=== PATIENT | female | born 1995 | race Caucasian/White ===

== ENCOUNTER 2024-05-09 10:50 | Emergency (ER) | payer OTHER, SELFPAY ==
[2024-05-09] VITALS (9 sets, daily range): BP systolic 102–153; BP diastolic 46–133; PULSE 58–120; RESP 16–22; O2SAT 99–100; BMI 20.4
--- NOTE | 2024-05-09 11:06 | ED_ITS ---
HPI - Overdose General Chief Complaint: Overdose Stated Complaint: OD,NARCAN GIVEN,HPD ONBOARD,RESTRAINED PER EMS Time Seen by Provider: 05/09/24 11:03 Source: patient Mode of arrival: ambulatory Limitations: no limitations History of Present Illness ED Provider: Dr. Kartik Campbell HPI Narrative: 28-year-old female brought to the emergency department for evaluation of altered mental status. Patient was acutely agitated at the time of my evaluation and required physical and chemical restraints and information was not obtainable from the patient. Report was obtained from EMS and the ED nurse. Patient was found down and altered. The patient was given intranasal Narcan by the 1st responders and also received intranasal Narcan from EMS. Was reported that the patient had both empty and full bags of heroin and cocaine scattered around the floor. She also had a bottle of gabapentin. The patient did wake up after receiving Narcan but was extremely combative and agitated. Related Data Allergies Allergy/AdvReac Type Severity Reaction Status Date / Time No Known Allergies Allergy Unverified 05/09/24 11:24 [No Known Allergies*] [facility] Social History Social History Unable to assess alcohol history related to: Unable to respond Use of substances other than those prescribed or required for medical reasons: Yes Substance Use Type: Crack/Cocaine and Heroin Advance Directives: No Advance Directives Information Provided: No Do you have a plan to hurt others: No Plan Physical Exam Vital Signs: Vital Signs: Last Vital Signs Pulse 63 05/09/24 16:00 Resp 16 05/09/24 16:00 BP 109/70 05/09/24 16:00 Pulse Ox 100 05/09/24 16:00 O2 Del Method Room Air 05/09/24 16:00 O2 Flow Rate 2 05/09/24 14:00 BMI result Body Mass Index 20.4 Vital signs were normal Exam: General: Patient is awake, agitated, screaming, required physical restraint by staff and then wrist and leg restraints. She also required chemical restraints. Head: Normocephalic, atraumatic EENT: PERRL, Lids normal, sclera normal, conjunctiva normal, nose normal , ears normal, throat without erythema or exudates Lung: breath sounds symmetric, no wheezing, rales or rhonchi Heart: regular rate and rhythm, normal S1, S2 no murmurs or rubs Extremities: no deformities, moves all extremities symmetrically Skin: Patient has multiple areas of bruising on her arms and legs. She has multiple track legs on her arms legs feet and neck.What is at of once a give her that mom can get him take a home your Jody mom, in meds okay Psych: Extreme agitation, unable to cooperate with commands Medications Administered Discontinued Medications Generic Name Dose Route Start Last Admin Trade Name Snow PRN Reason Stop Dose Admin Diphenhydramine HCl 50 mg 05/09/24 11:06 05/09/24 11:10 Diphenhydramine Hcl 50 Mg/Ml Vial IM 05/09/24 11:07 50 mg ONCE ONE Administration Haloperidol Lactate 10 mg 05/09/24 11:06 05/09/24 11:10 Haloperidol Lactate 5 Mg/Ml Vial IM 05/09/24 11:07 10 mg ONCE ONE Administration Lorazepam 2 mg 05/09/24 11:06 05/09/24 11:10 Lorazepam 2 Mg/Ml Vial IM 05/09/24 11:07 2 mg ONCE ONE Administration Ondansetron HCl 4 mg 05/09/24 11:37 05/09/24 12:20 Ondansetron Odt 4 Mg Tab.Rapdis TRANSLINGU 05/09/24 11:38 4 mg ONCE ONE Administration Medical Decision Making Medical Decision Making MDM Narrative: 28-year-old female who was found unresponsive and did wake up after receiving 2 doses of intranasal Narcan. Patient did not return to her baseline mental status and was extremely agitated during transport on presentation requiring physical and chemical restraints. Physical examination reveals track walker on her arms, legs and neck and bruising on her body. Patient was found with empty bags of heroin, empty bags of cocaine as well as unused bags of both of these substances. Differential diagnosis: ?Includes but is not limited to opiate use disorder, cocaine use disorder, polysubstance use Course: 17:48 Start physician observation The patient presented with extreme agitation after being revived with intranasal Narcan. Given her agitation I suspect that the patient has polysubstance is on board most likely PCP. The patient initially was physically restrained and chemically restrained with Haldol 10 mg IM, Benadryl 50 mg IM and Ativan 2 mg IM. The patient eventually was taken out of physical restraints in his been resting comfortably. Patient was still not awake and will need further observation here in the emergency department. At the end of my shift, the patient's care was turned over to my colleague, Dr. Poonam Horn. Patient will remain in the emergency department emergency department on a one-to-one observation until disposition can be determined or until patient's symptoms improve over time. Admission/Observation Consideration of admission/observation: Escalation of care including admission/observation considered Chronic Conditions Patient?s care impacted by: Other (Polysubstance use disorder) Critical Care Time Critical Care Time Critical Care Time: Yes Total Critical Care Time: 40 Attestation: Critical Care: The patient was critically ill with a high probability of imminent or life threatening deterioration. I spent greater than 30 minutes of discontinuous time evaluating the patient,delivering critical care at the bedside, discussing and evaluating pertinent data with consultants. Critical care time does not include time spent performing separately billable procedures or teaching. Total time spent performing critical care was 40 minutes. Discharge Plan Discharge Clinical Impression: Agitation due to dementia Opiate or related narcotic overdose Qualifiers: Encounter type: initial encounter Injury intent: accidental or unintentional Qualified Code(s): T40.601A - Poisoning by unspecified narcotics, accidental (unintentional), initial encounter Patient Disposition: Still a Patient Print Language: Tajik
[2024-05-09] MEDS: LORazepam 2 MG/ML VIAL IM (11:10)
[2024-05-09] MEDS: diphenhydrAMINE HCL 50 MG/ML VIAL IM (11:10)
[2024-05-09] MEDS: Haloperidol Lactate 5 MG/ML VIAL 10 MG IM (11:10)
--- NOTE | 2024-05-09 12:18 | MHC.EDTECH ---
attempted to obtain labwork. patient still unable to stay still enough. provider made aware. attempt was unsuccessful.
--- NOTE | 2024-05-09 12:19 | MHC.EDTECH ---
Patient not still enough for an EKG
[2024-05-09] MEDS: Ondansetron ODT 4 MG TAB.RAPDIS TRANSLINGU (12:20)
--- NOTE | 2024-05-09 12:44 | PC.NURSE ---
Patient not able to sit still for ekg/lab draws, provider aware, okay'd to hold off for now. 1:1 sitter at bedside, patient continues to be in restraints.
--- NOTE | 2024-05-09 14:16 | PC.NURSE ---
Patient continues to rest quietly on the stretcher, provider aware, okay with continuing to hold off w/ sticking patient d/t difficult stick & difficult patient, 1:1 sitter at bedside, VSS.
--- OUTSIDE RECORDS SUMMARY | 2024-05-09 17:32 | XMS_ITS | Continuity of Care Document ---
Author Organization [facility] Address Unknown Care Team Providers Care Infection Preventionist Name Role Phone Not on Staff, PCP Primary Care Physician Unavail able [facility]counter [facility] Date(s): [facility]17[facility]21 [facility] Allergies, Adverse Reactions, Alerts No Known Medication Allergies Immunizations Given and Recorded Vaccine Date Status Refusal Reason tetanus/diphtheria/pertussis, acel(Tdap) 09/24/19 Given Medications Suboxone 2 mg-0.5 mg sublingual film Sublingual, Daily, 0 Refills, Maintenance, 09/24/19 7:35:00 EST Start Date: 09/24/19 Status: Ordered Problem List Condition Effective Dates Status Health Status Inform ant Anxiety and depression(Confirmed) Active History of gonorrhea(Confirmed) Active Late latent syphilis(Confirmed) Active Narcotic abuse(Confirmed) Active Hepatitis C(Confirmed) Active Social History Social History Type Response Tobacco Other: 0.5ppd x sine 17 yrs of age.. Sex
--- OUTSIDE RECORDS SUMMARY | 2024-05-09 17:32 | XMS_ITS | Continuity of Care Document ---
[facility] Address [address] [place] [address]- Care Team Providers Care Oxygen Tank Filler Name Role Phone Sean GRIFFIN, Emiliano Jaramillo Primary Care Physician Encounter [facility] Date(s): 10/28/19 - 11/07/19 [facility] [place] [address] [place] [address]- [facility] Attending Physician: AdmLayton vang Admitting Physician: Admtr, Layton Referring Physician: Admtr, Ar8 Allergies, Adverse Reactions, Alerts No Known Medication Allergies Immunizations Given and Recorded Vaccine Date Status Refusal Reason tetanus/diphtheria/pertussis, acel(Tdap) 09/24/19 Given Medications melatonin 1 mg oral tablet 1 tablet = 1 mg, By Mouth, Daily at bedtime, PRN for insomnia, for 30 days, # 30 tablet, 0 Refills,Acute 11/27/19 14:58:00 EDT, 10/28/19 14:58:00 EST, Tablet, [id number], 153, cm, 10/28/19 14:32:00 EST, Height Start Date: 10/28/19 Stop Date: 11/27/19 Status: Ordered Suboxone 2 mg-0.5 mg sublingual film Sublingual, Daily, 0 Refills, Maintenance, 09/24/19 7:35:00 EST Start Date: 09/24/19 Status: Ordered Problem List Condition Effective Dates Status Health Status Inform ant Anxiety and depression(Confirmed) Active History of gonorrhea(Confirmed) Active Late latent syphilis(Confirmed) Active Narcotic abuse(Confirmed) Active Hepatitis C(Confirmed) Active Social History Social History Type Response Tobacco Use: vaping. Sex
--- OUTSIDE RECORDS SUMMARY | 2024-05-09 17:32 | XMS_ITS | Continuity of Care Document ---
Author Organization [facility] Address [address] [place] [address]- Care Team Providers Care Knit Goods Press Hand Name Role Phone Angie GRIFFIN, Diane Bobby Primary Care Physician Encounter [facility] Date(s): 02/05/22 - [facility] [address] [place] [address]- Attending Physician: Layton Golden Admitting Physician: Layton Golden Referring Physician: trLayton Allergies, Adverse Reactions, Alerts No Known Medication Allergies Immunizations Given and Recorded Vaccine Date Status Refusal Reason tetanus/diphtheria/pertussis, acel(Tdap) 09/24/19 Given Medications Nexplanon 68 mg subcutaneous implant 1 each = 68 mg, Subcutaneous Infusion, Once, # 1 each, 0 Refills, Soft Stop, 01/04/22 9:13:00 EDT, [facility], Partial fill upon patient request if the prescription is for a scheduleII opioid drug. Start Date: 01/04/22 Status: Ordered Suboxone 2 mg-0.5 mg sublingual [...]
--- OUTSIDE RECORDS SUMMARY | 2024-05-09 17:32 | XMS_ITS | Continuity of Care Document ---
Author Organization [facility] Address [address] [place] [address]- Care Team Providers Care Paper Latcher Name Role Phone Sean GRIFFIN, Emiliano Jaramillo Primary Care Physician Encounter [facility] Date(s): 10/14/19 - 10/14/[address] [address]- [facility] Attending Physician: Alvarez Dixon DO Allergies, Adverse Reactions, Alerts No Known Medication Allergies Immunizations Given and Recorded Vaccine Date Status Refusal Reason tetanus/diphtheria/pertussis, acel(Tdap) 09/24/19 Given Medications Suboxone 2 mg-0.5 mg sublingual film Sublingual, Daily, 0 Refills, Maintenance, 09/24/19 7:35:00 EST Start Date: 09/24/19 Status: Ordered Problem List Condition Effective Dates Status Health Status Inform ant Anxiety and depression(Confirmed) Active History of gonorrhea(Confirmed) Active Narcotic abuse(Confirmed) Active Hepatitis C(Confirmed) Active Social History Social History Type Response Tobacco Use: Vaping. Sex
--- OUTSIDE RECORDS SUMMARY | 2024-05-09 17:32 | XMS_ITS | Continuity of Care Document ---
Author Organization [facility] Address [address] [place] [address]- Care Team Providers Care Dental Scheduler Name Role Phone New Michael MD Primary Care Physician [phone] Encounter [facility] R [id number] Date(s): 07/19/20 - 08/18/20 [facility] [address] [place], [place] [email or web address] Attending Physician: Layton Golden Admitting Physician: Layton Golden Referring Physician: AdmtrLayton Allergies, Adverse Reactions, Alerts No Known Medication [...]
--- OUTSIDE RECORDS SUMMARY | 2024-05-09 17:32 | XMS_ITS | Continuity of Care Document ---
Author Organization [facility] Address [address] [place] [address]- Care Team Providers Care Community Service Organization Director Name Role Phone Not on Staff, PCP Primary Care Physician Unavail able Encounter [facility] Date(s): 12/15/21 - 01/14/22 [facility] [address] [place] [address]- [place] Allergies, Adverse Reactions, Alerts No Known Medication Allergies Immunizations Given and Recorded Vaccine Date Status Refusal Reason tetanus/diphtheria/pertussis, acel(Tdap) 09/24/19 Given Medications Nexplanon 68 mg subcutaneous implant 1 each = 68 mg, Subcutaneous Infusion, Once, # 1 each, 0 Refills, Soft Stop, 01/04/22 9:13:00 EDT, [facility], Partial fill upon patient request [...]
--- OUTSIDE RECORDS SUMMARY | 2024-05-09 17:32 | XMS_ITS | Continuity of Care Document ---
Author Organization [facility] Address [address] [place] [address]- Care Team Providers Care Parachute Panel Joiner Name Role Phone Diane Adams MD Primary Care Physician [phone] Encounter [facility] Date(s): 12/15/21 - 03/07/22 [facility] [employer] [facility] [place] [id number]- Attending Physician: Diane Adams MD Allergies, Adverse Reactions, Alerts No Known Medication Allergies Immunizations Given and Recorded Vaccine Date Status Refusal Reason tetanus/diphtheria/pertussis, acel(Tdap) 09/24/19 Given Medications Nexplanon 68 mg subcutaneous implant 1 each = 68 mg, Subcutaneous Infusion, Once, # 1 each, 0 Refills, Soft Stop, 01/04/22 9:13:00 EDT, [facility], Partial fill upon patient request [...] Active Narcotic abuse(Confirmed) Active Hepatitis C(Confirmed) Active Vital Signs Most recent to oldest [Reference Range]: 1 Height 153 cm (02/05/22 12:28 PM) Social History Social History Type Response Tobacco Other: 0.5ppd x sine 17 yrs of age.. Sex
--- OUTSIDE RECORDS SUMMARY | 2024-05-09 17:33 | XMS_ITS | Continuity of Care Document ---
Author Organization [facility] [place] Address [address] [place] [address]- Care Team Providers Care Agriculture Mechanic Name Role Phone Emiliano Estrada MD Primary Care Physician Encounter [facility] Date(s): 10/28/19 - 11/04/19 [facility] [place] [address] [place] [address]- [facility] Attending Physician: Emiliano Estrada MD Allergies, Adverse Reactions, Alerts No Known [...] oldest [Reference Range]: 1 Height 153 cm (10/28/19 2:32 PM) Weight 62.0 kg (10/28/19 2:32 PM) Oxygen Saturation [94-100 %] 98 % (10/28/19 2:32 PM) Pulse Rate [55-90 bpm] 74 bpm (10/28/19 2:32 PM) Body Mass Index [18.5-24.99] 26.49 *H* (10/28/19 2:32 PM) Blood Pressure [90-138/55-84 mm Hg] 88/7 0mm Hg *L* (10/28/19 2:32 PM) Respiratory Rate [16-30 br/min] 18 br/mi n (10/28/19 2:32 PM) Temperature [96.8-100.4 DegF] 98.2 DegF (10/28/19 2:32 PM) Liters per Minute 0 L/min (10/28/19 2:32 PM) Mode of Delivery (Oxygen) Room air (10/28/19 2:32 PM) Blood pressure sites Arm, left (10/28/19 2:32 PM) Temperature Route Temporal (10/28/19 2:32 PM) Social History Social History Type Response Tobacco Use: vaping. Sex
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
--- OUTSIDE RECORDS SUMMARY | 2024-05-09 17:33 | XMS_ITS | Continuity of Care Document ---
Author Organization [facility] [place] Address [address] [place] [address]- Care Team Providers Care Deicer Repairer Electric Name Role Phone Sean GRIFFIN, Emiliano Jaramillo Primary Care Physician Encounter [facility] Date(s): 09/24/19 - 10/04/19 [facility] [place] [address] [place] [address]- [facility] Attending Physician: Layton Golden Admitting Physician: Layton Golden Referring Physician: Admtr, Ar8 Allergies, Adverse Reactions, Alerts No Known Medication Allergies Immunizations Given and Recorded Vaccine Date Status Refusal Reason tetanus/diphtheria/pertussis, acel(Tdap) 09/24/19 Given Medications Suboxone 2 mg-0.5 mg sublingual film Sublingual, Daily, 0 Refills, Maintenance, 09/24/19 7:35:00 EST Start Date: 09/24/19 Status: Ordered Problem List Condition Effective Dates Status Health Status Inform ant Anxiety and depression(Confirmed) Active Narcotic abuse(Confirmed) Active Social History Social History Type Response Tobacco Use: Vaping. Sex
--- OUTSIDE RECORDS SUMMARY | 2024-05-09 17:33 | XMS_ITS | Continuity of Care Document ---
Author Organization [facility] Address [address] [place] [address]- Care Team Providers Care Fancy Needleworker Name Role Phone New Michael MD Primary Care Physician Encounter [facility] Date(s): 06/30/20 - 08/18/20 [facility] [address] [place] [address]- Encounter Diagnosis Encounter to establish care with new doctor(Discharge Diagnosis) - 07/19/20 Anxiety and depression(Discharge Diagnosis) - 07/19/20 Narcotic abuse(Discharge Diagnosis) - 07/19/20 Hepatitis C(Discharge Diagnosis) - 07/19/20 Attending Physician: New Michael MD Allergies, Adverse Reactions, Alerts No Known [...] Active Narcotic abuse(Confirmed) Active Hepatitis C(Confirmed) Active Diagnosis Diagnosis Type Effective Dates Health Status Clinical Service Informant Encounter to establish care with new doctor Discharge Diagnosis 07/19/20 Anxiety and depression Discharge Diagnosis 07/19/20 Narcotic abuse Discharge Diagnosis 07/19/20 Hepatitis C Discharge Diagnosis 07/19/20 Social History Social History Type Response Tobacco Other: 0.5ppd x sine 17 yrs of age.. Sex
--- OUTSIDE RECORDS SUMMARY | 2024-05-09 17:33 | XMS_ITS | Continuity of Care Document ---
Author Organization [facility] Address [address] [place] [address]- Care Team Providers Care Storage Facility Housekeeper Name Role Phone Diane Adams MD Primary Care Physician [phone] [facility] Date(s): 08/09/22 - 09/12/22 [facility] [address] [place] [address]- [place] Attending Physician: Asia Artis MD Admitting Physician: Asia Artis MD Referring Physician: Asia Artis MD Allergies, Adverse Reactions, Alerts No Known [...] Date: 09/24/19 Status: Ordered Problem List Condition Confirmation Course Effective Dates Status Health St atus Informant Anxiety and depression Confirmed Active History of gonorrhea Confirmed Active Late latent syphilis Confirmed Active Narcotic abuse Confirmed Active Hepatitis C Confirmed Active Social History Social History Type Response Tobacco Other: 0.5ppd x sine 17 yrs of age.. Sex Patient Care team information Care Team Personnel Name: Diane Adams MD Position: S Primary Care Physician Member Role: PCP Address: Address: [address] [place] [address] [place] [address]- Care Team Related Persons Name: TADEO NATION Address: home [address] [place] [address]
--- NOTE | 2024-05-09 19:46 | PC.NURSE ---
Patient continues to sleep on stretcher, no issues noted, VSS.
--- NOTE | 2024-05-09 21:11 | PC.NURSE ---
Confirmed with security patient's belongings are in [facility].
--- NOTE | 2024-05-09 23:36 | PC.NURSE ---
Addendum entered by Dalia Hyman 05/10/24 00:09: No labwork/EKG needed at this time per provider. Original Note: This rfp writer assumed care of this Pt at 2300. Pt appears to be sleeping at this time. Equal non labored respirations, no apparent distress noted. Plan for Pt to metabolize to freedom.
[2024-05-10 00:25] VITALS: BP 123/74; PULSE 71; RESP 17; TEMP 36.1; O2SAT 97
[2024-05-10 06:10] VITALS: BP 106/60; PULSE 84; RESP 17; TEMP 36.4; O2SAT 94
[2024-05-10 07:01] VITALS: BP 106/60; PULSE 84; RESP 17; TEMP 36.4; O2SAT 94
== END 2024-05-10 07:04 | disposition home or self-care (01) ==
PROVIDERS: Emergency Provider Emergency Medicine Emergency Medical Services
DX: F03.911 Unspecified dementia, unspecified severity, with agitation (principal); T50.991A Poisoning by other drugs, medicaments and biological substances, accidental (unintentional), initial encounter; R40.4 Transient alteration of awareness; Y92.9 Unspecified place or not applicable; F19.10 Other psychoactive substance abuse, uncomplicated; Z78.1 Physical restraint status
CPT/HCPCS: 96372; 99284; 99285; J1200; J1630; J2060